=== PATIENT | female | born 2000 | race Caucasian/White ===

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

== ENCOUNTER 2023-06-04 11:37 | Emergency (ER) | payer MEDICAID ==
[~2023-06-04] VITALS: Ht 172.7 cm; Wt 45.5 kg
[2023-06-04 12:12] VITALS: BP 155/86; PULSE 85; RESP 18; TEMP 97; O2SAT 100
[2023-06-04] MEDS ORDERED: BROM118S60 PO (12:53)
[2023-06-04] MEDS ORDERED: ACET-3068 PO ×2 (12:53→12:55)
[2023-06-04] MEDS ORDERED: ALBU8HFA INH (12:53)
[2023-06-04] MEDS ORDERED: PRED20TA PO (12:53)
[2023-06-04] MEDS ORDERED: CLIN-97 PO (12:55)
== END 2023-06-04 13:19 | disposition home or self-care (01) ==
LOC: ER 11:38
DX: J20.9 Acute bronchitis, unspecified (principal); Z79.2 Long term (current) use of antibiotics
CPT/HCPCS: 71045; 99283